=== PATIENT | male | born 1930 | race Caucasian/White ===

== ENCOUNTER 2018-02-03 13:23 | Outpatient (CLI) | payer MEDICARE ==
--- NOTE | 2018-02-03 18:49 | RAD ---
LEFT HIP TWO VIEWS: 02/03/18 No fracture, recent or remote, was appreciated. The joint space is normal in width and the articular surfaces are smooth. The adjacent pubic ring appears intact. IMPRESSION: No acute finding. POS: HOME
--- NOTE | 2018-02-03 19:25 | RAD ---
ABDOMEN 02/03/18 AP supine views of the abdomen were provided. There is gas in large and small bowel. Some of the prox imal small bowel shows some slight dilation, but it is not convincing for obstruction at this time. F ecal material is scattered throughout the colon. Pelvic calcifications are most likely phleboliths. F lank calcifications over the kidneys would be missed due to the overlying gas and fecal material. Phyllis ious clips are seen throughout the abdomen from a prior operative procedure. Lumbar scoliosis convexe d right is present with extensive degenerative changes. IMPRESSION: Nonspecific abdominal pattern. If pain should persist or worsen, then a CT might be needed to better assess the situation. POS: HOME
== END 2018-02-03 13:24 | disposition home or self-care (01) ==
LOC: BURRAD 13:23
PROVIDERS: ATTEND Nurse Practitioner Family
DX: R10.9 Unspecified abdominal pain (principal); Z85.528 Personal history of other malignant neoplasm of kidney; Z90.5 Acquired absence of kidney; Z87.442 Personal history of urinary calculi
CPT/HCPCS: 74018

== ENCOUNTER 2019-05-01 14:58 | Outpatient (CLI) | payer MEDICARE ==
--- NOTE | 2019-05-01 18:36 | RAD ---
RIGHT CLAVICLE TWO VIEWS: Date: 05-01-19 FINDINGS: No acute fracture was seen. There is narrowing of the AC joint with some bony spurring that projects inferiorly. It could potentially cause impingement on the supraspinatus tendon. The humeral head appe ars intact. IMPRESSION: No acute traumatic changes. POS: HOME
--- NOTE | 2019-05-01 18:38 | RAD ---
RIGHT SHOULDER THREE VIEWS: Date: 05-01-19 FINDINGS: No fracture or dislocation was seen. Degenerative changes in the glenohumeral joint are minimal. Some mild degenerative change is seen in the AC joint. No areas of bony destruction is seen. While the ri ght side of the mediastinum appear prominent, I do believe it is due to patient being turned to his s lonny, and having a tortuous great vessel. IMPRESSION: No acute findings. POS: HOME
--- NOTE | 2019-05-01 18:58 | RAD ---
LUMBAR SPINE THREE VIEWS: Date: 05-01-19 Comparison: None. FINDINGS: Scoliosis is present, convex right. No acute fracture was identified. There is multilevel degenerativ e disc disease, particularly at L1-2, L2-3, and L5-S1. Severe degenerative changes are present in the facet joints, particularly at L5-S1. The SI joints are symmetrical. IMPRESSION: Scoliosis and moderately severe degenerative change with multilevel degenerative disc disease. No sig n of acute traumatic change. POS: HOME
== END 2019-05-01 14:59 | disposition home or self-care (01) ==
LOC: BURRAD 14:58
PROVIDERS: ATTEND Family Medicine
DX: M25.511 Pain in right shoulder (principal); M54.5 Low back pain; M51.36 Other intervertebral disc degeneration, lumbar region; M47.816 Spondylosis without myelopathy or radiculopathy, lumbar region; M41.9 Scoliosis, unspecified; Z91.81 History of falling
CPT/HCPCS: 72100

== ENCOUNTER 2020-05-13 09:29 | Inpatient (IN) | payer MEDICARE, OTHER ==
[2020-05-13 09:54] LABS: #Basophils 0.1 thou/uL (0.0-0.2); #Eosinphils 0.3 thou/uL (0.0-0.7); #Monocytes 1.4 thou/uL (0.11-0.59); #Neutrophils 5.9 thou/uL (1.40-6.50); %Basophils 1.1 % (0.0-1.0); %Eosinophils 2.2 % (0.0-10.0); %Lymphocytes 34.4 % (21.0-51.0); %Monocytes 11.9 % (0.0-10.0); %Neutrophils 50.3 % (42.0-75.0); Hemoglobin 13.2 g/dL (14.0-18.0); Mean Corpuscular HGB CONC 30.4 g/dL (32.0-36.0); Mean Corpuscular Hemoglobin 28.9 pg (27.0-31.0); Mean Corpuscular Volume 95.3 fL (78.0-98.0); Mean Platelet Volume 8.2 fL (7.4-10.4); Platelet Count 249 thou/uL (130-400); RBC Distribution Width 13.6 % (11.5-14.5); Red Blood Cell (RBC) Count 4.55 mill/uL (4.70-6.10); White Blood Cell (WBC) Count 11.7 thou/uL (4.8-10.8)
[2020-05-13 10:00] LABS: INR-International Normal Ratio 1.1; Prothrombin Time 14.1 sec (12.0-14.7)
[2020-05-13 10:04] LABS: PTT 32.3 sec (22.9-36.1)
[2020-05-13 10:08] LABS: ALT (SGPT) 13 U/L (8-55); AST (SGOT) 19 U/L (5-34); Albumin 3.6 g/dL (3.4-4.8); Alkaline Phosphatase 63 U/L (40-110); Anion Gap 16 mmol/L (10-20); BUN (Urea Nitrogen) 17 mg/dL (8.4-25.7); Bilirubin, Total 0.7 mg/dL (0.2-1.2); Calc. Creatinine Clearance 0 mL/min (70-130); Calcium 8.7 mg/dL (7.8-10.44); Carbon Dioxide 26 mmol/L (23-31); Chloride 104 mmol/L (98-107); Estimated GFR-MDRD 61; Globulin 3.4 g/dL (2.4-3.5); Glucose 119 mg/dL (83-110); Potassium 4.3 mmol/L (3.5-5.1); Sodium 142 mmol/L (136-145)
--- NOTE | 2020-05-13 10:08 | RAD ---
Portable frontal chest radiograph: 05/13/2020 COMPARISON: 09/25/2019 HISTORY: Pain FINDINGS: Stable increased density is noted in the right paratracheal region with deviation of the tr achea to the left, likely on the basis of right thyroid enlargement and vascular prominence when compared to prior CT angiogram performed 10/07/2018. No pneumothorax, pleural fluid, focal consolidati on, or alveolar edema. IMPRESSION: No focal consolidation or alveolar edema.
[2020-05-13 10:17] LABS: Bilirubin Small (Negative); Blood, Urine Large (Negative); Clarity Cloudy (Clear); Glucose, Urine (Dipstick) Negative (Negative); Ketone, Urine Negative (Negative); Leukocyte Small (Negative); Nitrite Negative (Negative); Protein, Urine (Dipstick) > or equal to 300 mg/dL (Neg-Trace)
[2020-05-13 10:21] LABS: pH, Urine Greater/Equal 9.0 (5.0-9.0)
[2020-05-13] MEDS ORDERED: Haloperidol Lactate 5 MG/ML VIAL ONE (10:26)
[2020-05-13 10:39] LABS: Bacteria/HPF 2+ HPF (None Seen); Squamous Epithelial 0-3 HPF (0-3)
[2020-05-13 12:47] LABS: Lactic Acid 1.6 mmol/L (0.5-2.2)
[2020-05-13] MEDS ORDERED: Sodium Chloride 0.9% 1,000 ML IV SCH (15:00)
[2020-05-13] MEDS ORDERED: Haloperidol Lactate 5 MG/ML VIAL SLOW IVP PRN (15:08)
[2020-05-13 15:59] VITALS: BMI 10.9
[2020-05-13] MEDS ORDERED: CAMPHOR TOP PRN (16:24)
[2020-05-13] MEDS ORDERED: SUMATRIPTAN SUCCINATE 50 MG PO PRN (16:24)
[2020-05-13] MEDS ORDERED: Acetaminophen 325 MG TAB PO PRN (16:24)
[2020-05-13] MEDS ORDERED: WHITE PETROLATUM TOP PRN (16:24)
[2020-05-13] MEDS ORDERED: EUCALYPTUS OIL TOP PRN (16:24)
[2020-05-13] MEDS ORDERED: MENTHOL TOP PRN (16:24)
[2020-05-13] MEDS ORDERED: [UNRECOGNIZED DRUG - OTHER] TOP PRN (16:24)
[2020-05-13] MEDS ORDERED: BISMUTH SUBSALICYLATE PO PRN (16:24)
[2020-05-13] MEDS ORDERED: Polyethylene Glycol OPTH DROP 15 ML BOT EA EYE PRN (17:12)
[2020-05-13] MEDS: Sodium Chloride 0.9% 1,000 ML IV SCH (17:20)
[2020-05-13] MEDS: Haloperidol Lactate 5 MG/ML VIAL SLOW IVP PRN ×2 (18:38→22:25)
[2020-05-13] MEDS: Gabapentin 100 MG CAP PO SCH (20:53)
[2020-05-13] MEDS: traMADol HCl 50 MG TAB PO PRN (20:54)
[2020-05-13] MEDS: Atorvastatin Calcium 40 MG TAB PO SCH (20:55)
[2020-05-13] MEDS ORDERED: MELATONIN PO SCH (21:00)
[2020-05-13] MEDS ORDERED: PYRIDOXINE PO SCH (21:00)
--- NOTE | 2020-05-13 21:11 | HP ---
CHIEF COMPLAINT: Urinary retention. HISTORY OF PRESENT ILLNESS: This is an 89-year-old male, resident of [facility], who was brought to the [facility] Emergency Department earlier today via EMS secondary to noted tachycardia and hypotension per [facility] staff. Of note, the patient has been having symptoms of urinary retention, for which he has had recent placement of a Aguilera catheter. 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 In the emergency department, he was noted to have a mild leukocytosis, urinary tract infection, and elevated lactic acid, accompanied by tachycardia and borderline hypotension. He was treated with intravenous fluids with vancomycin and Rocephin due to concern for sepsis. For his agitation, he was administered haloperidol. The patient's vital signs did stabilize with intravenous fluids and he was subsequently admitted to the floor for further care. On exam, the patient is unable to provide any satisfactory history. He is only mildly agitated and is producing clear/yellow tinged fluid into his Aguilera bag. PAST MEDICAL HISTORY: Includes blindness, deafness, vascular dementia, gastroesophageal reflux disease, BPH, dyslipidemia, hypertension, chronic back pain, osteoarthritis, dysphagia, repeated falls, TIA x2, gout, and insomnia. PAST SURGICAL HISTORY: Includes cholecystectomy, splenectomy, right-sided nephrectomy, ORIF of the left ankle, and abdominal hernia repair. SOCIAL HISTORY: Noncontributory, other than he lives at the [facility]. ALLERGIES: CIMETIDINE, ERYTHROMYCIN, PENICILLIN, AND SULFA. FAMILY HISTORY: Noncontributory. CURRENT MEDICATIONS: 1. Tinactin topically b.i.d. 2. Systane eye drops one drop to each eye q.6 hours p.r.n. 3. Vicks VapoRub 24 hours p.r.n. 4. Tramadol 50 mg q.6 hours p.r.n. 5. Gabapentin 200 mg b.i.d. 6. Sumatriptan 50 mg q.24 hours p.r.n. 7. Melatonin 5 mg at bedtime. 8. Pantoprazole 40 mg at bedtime. 9. Seroquel 100 mg b.i.d. 10. Levsin one tablet b.i.d. 11. Colace one capsule daily. 12. Pepto-Bismol 30 mL p.r.n. 13. Aspirin 81 mg daily. 14. Tylenol 650 mg q.4 hours p.r.n. 15. Atorvastatin 20 mg at bedtime. 16. Donepezil 23 mg at bedtime. 17. Flomax 0.8 mg daily. 18. MiraLAX 17 g p.o. daily. REVIEW OF SYSTEMS: Unable to obtain secondary to the patient's dementia. LABORATORY DATA: White blood cell count is 11.7, hemoglobin 13.2, hematocrit 43.4, and platelets 249. Sodium 142, potassium 4.3, BUN is 17, creatinine 1.13, GFR 61, and glucose 119. Initial lactic acid 3.1, followup 3 hours later is 1.6. AST 19 and ALT 13. Troponin was less than 0.010. BNP 35.8. Urine positive for protein, blood, leukocyte esterase, and 2+ bacteria. IMAGING DATA: Chest x-ray shows no focal consolidation or alveolar edema. PHYSICAL EXAMINATION: VITAL SIGNS: Temperature is 98.1, pulse is 91, respiratory rate is 20, oxygen is 95% on room air, and blood pressure is 158/87. GENERAL: The patient is alert, hard of hearing. HEENT: Eyes; conjunctivae are clear. Extraocular muscles are intact bilaterally. Ears, nose, and throat, he is edentulous with oral fasciculations. NECK/THYROID: Trachea is midline. No lymphadenopathy. CARDIOVASCULAR: Irregular. Normal S1 and S2. 2/6 murmur. RESPIRATORY: Clear to auscultation bilaterally without wheezes, rales, or rhonchi. He does have transmitted upper airway noises. GASTROINTESTINAL: Soft and nontender to palpation. No masses. EXTREMITIES: No clubbing, cyanosis, or edema. He has elongated toenails. SKIN: No rash. NEUROLOGIC: Nonfocal. MUSCULOSKELETAL: Generalized weakness. ASSESSMENT AND PLAN: 1. Sepsis. The patient's vital signs have stabilized and lactic acid has returned from initial elevation to a normal level. We will resume the patient on Rocephin. Presume this to be secondary to urinary tract infection from underlying urinary retention. 2. Urinary tract infection. We will follow up with the patient's urine culture. We will repeat the patient's CBC in the morning as he currently has leukocytosis. 3. Dehydration. Volume status appears improved secondary to stabilized vital signs and appearance of his urine in Aguilera bag improved from initial appearance. 4. Vascular dementia with behavior disturbance. He will be resumed on Seroquel and will have p.r.n. Haldol available as well. 5. Urinary retention. He currently has a Aguilera catheter in place. We will leave this overnight and try a voiding trial tomorrow. 6. Benign prostatic hyperplasia. We will resume the patient's Flomax. 7. Dyslipidemia. We will resume the patient's statin. 8. Disposition. We will likely be able to transition the patient back to the [facility]. Upon completion of his cultures, as stated, we will try a voiding trial between now and then to see if he needs to return with a Aguilera catheter in place. If he does return to the fdc with Aguilera in place, he will need followup with Urology as an outpatient. 9. Code status is full. Job ID: [id number]
[2020-05-13] MEDS: TOLNAFTATE TOP SCH (21:17)
[2020-05-14] MEDS: Sodium Chloride 0.9% 1,000 ML IV SCH (01:23)
[2020-05-14 05:47] LABS: #Basophils 0.2 thou/uL (0.0-0.2); #Eosinphils 0.3 thou/uL (0.0-0.7); #Lymphocytes 2.8 thou/uL (1.20-3.40); #Monocytes 1.6 thou/uL (0.11-0.59); #Neutrophils 6.1 thou/uL (1.40-6.50); %Basophils 1.7 % (0.0-1.0); %Eosinophils 2.5 % (0.0-10.0); %Lymphocytes 25.5 % (21.0-51.0); %Monocytes 14.4 % (0.0-10.0); %Neutrophils 56.1 % (42.0-75.0); Hemoglobin 12.2 g/dL (14.0-18.0); Mean Corpuscular HGB CONC 29.9 g/dL (32.0-36.0); Mean Corpuscular Hemoglobin 28.6 pg (27.0-31.0); Mean Corpuscular Volume 95.6 fL (78.0-98.0); Mean Platelet Volume 8.7 fL (7.4-10.4); Platelet Count 242 thou/uL (130-400); RBC Distribution Width 13.8 % (11.5-14.5); Red Blood Cell (RBC) Count 4.28 mill/uL (4.70-6.10); White Blood Cell (WBC) Count 10.9 thou/uL (4.8-10.8)
[2020-05-14 06:02] LABS: ALT (SGPT) 13 U/L (8-55); AST (SGOT) 18 U/L (5-34); Albumin 3.3 g/dL (3.4-4.8); Alkaline Phosphatase 56 U/L (40-110); Anion Gap 12 mmol/L (10-20); BUN (Urea Nitrogen) 14 mg/dL (8.4-25.7); Bilirubin, Total 0.7 mg/dL (0.2-1.2); Calc. Creatinine Clearance 34 mL/min (70-130); Calcium 8.1 mg/dL (7.8-10.44); Carbon Dioxide 26 mmol/L (23-31); Chloride 107 mmol/L (98-107); Estimated GFR-MDRD 86; Globulin 2.8 g/dL (2.4-3.5); Glucose 90 mg/dL (83-110); Potassium 3.9 mmol/L (3.5-5.1); Protein, Total 6.1 g/dL (5.8-8.1); Sodium 141 mmol/L (136-145)
[2020-05-14] MEDS: Haloperidol Lactate 5 MG/ML VIAL SLOW IVP PRN ×3 (08:10→19:40)
[2020-05-14] MEDS: Aspirin 81 mg Enteric Coated Tablet PO SCH (08:13)
[2020-05-14] MEDS: Gabapentin 100 MG CAP PO SCH ×2 (08:13→20:39)
[2020-05-14] MEDS: Docusate 100 MG CAP PO SCH (08:14)
[2020-05-14] MEDS: Tamsulosin HCl 0.4 MG CAP PO SCH (08:14)
[2020-05-14] MEDS ORDERED: Scopolamine 1.5 mg/72 hour Patch TD SCH (09:00)
[2020-05-14] MEDS: Polyethylene Glycol 3350 17 GM Packet PO SCH (09:14)
[2020-05-14] MEDS: TOLNAFTATE TOP SCH (09:15)
[2020-05-14] MEDS: cefTRIAXone\\ROCEPHIN 1 GM in Sodium Chloride 0.9% 100 ML IVPB SCH (10:24)
[2020-05-14] MEDS: Hyoscyamine Sulfate SL 0.125 mg Tablet SL SCH (10:27)
[2020-05-14] MEDS ORDERED: Hyoscyamine Sulfate SL 0.125 mg Tablet SL SCH (10:30)
[2020-05-14] MEDS: Dextrose 5 %-0.45 % NaCl 1,000 ML IV SCH (15:10)
[2020-05-14 15:45] LABS: SARS-CoV-2 MS2 Positive; SARS-CoV-2 N Gene Negative; SARS-CoV-2 S Gene Negative; SARS-CoV-2 by NAA Not Detected (NotDetected); SARS-CoV-2 orf1ab Negative
[2020-05-14 17:04] VITALS: BP 121/89
[2020-05-14] MEDS: Atorvastatin Calcium 40 MG TAB PO SCH (20:39)
[2020-05-14] MEDS ORDERED: Donepezil HCl 10 MG TAB PO SCH (21:00)
[2020-05-14] MEDS ORDERED: Melatonin 3 MG TAB PO SCH (21:00)
[2020-05-15] MEDS: Dextrose 5 %-0.45 % NaCl 1,000 ML IV SCH (05:03)
[2020-05-15] MEDS: Haloperidol Lactate 5 MG/ML VIAL SLOW IVP PRN ×2 (05:15→09:17)
[2020-05-15 05:37] LABS: Mean Corpuscular HGB CONC 30.1 g/dL (32.0-36.0); Mean Corpuscular Hemoglobin 28.7 pg (27.0-31.0); Mean Corpuscular Volume 95.3 fL (78.0-98.0); Mean Platelet Volume 9.8 fL (7.4-10.4); Platelet Count 267 thou/uL (130-400); RBC Distribution Width 13.5 % (11.5-14.5); Red Blood Cell (RBC) Count 4.54 mill/uL (4.70-6.10); White Blood Cell (WBC) Count 11.5 thou/uL (4.8-10.8)
[2020-05-15 05:56] LABS: Burr Cells SLIGHT = 2-5 cells (100X) (0-1/hpf); MDiff Complete? YES; Platelet Morphology Comment Appears Adequate; Poikilocytosis SLIGHT = 6-15 cells (100X) (0-5/hpf); Schistocytes SLIGHT = 2-5 cells (100X) (0-1/hpf)
[2020-05-15 06:16] VITALS: TEMP 98.6
[2020-05-15] MEDS: traMADol HCl 50 MG TAB PO PRN (08:46)
[2020-05-15] MEDS: Gabapentin 100 MG CAP PO SCH (09:26)
[2020-05-15] MEDS: Polyethylene Glycol 3350 17 GM Packet PO SCH (09:26)
[2020-05-15] MEDS: Hyoscyamine Sulfate SL 0.125 mg Tablet SL SCH (09:26)
[2020-05-15] MEDS: Docusate 100 MG CAP PO SCH (09:26)
[2020-05-15] MEDS: Tamsulosin HCl 0.4 MG CAP PO SCH (09:26)
[2020-05-15] MEDS: Aspirin 81 mg Enteric Coated Tablet PO SCH (09:26)
[2020-05-15] MEDS: cefTRIAXone\\ROCEPHIN 1 GM in Sodium Chloride 0.9% 100 ML IVPB SCH (10:33)
--- NOTE | 2020-05-15 14:25 | DIS ---
DATE OF ADMISSION: 05/13/2020 DATE OF DISCHARGE: 05/15/2020 ADMISSION DIAGNOSES: Sepsis, urinary tract infection, dehydration, dysphagia, urinary retention. SECONDARY DIAGNOSES: Vascular dementia with behavioral disturbance, benign prostatic hypertrophy, and dyslipidemia. PROCEDURES: 05/13/20, chest x-ray showed no focal consolidation or alveolar edema. HOSPITAL COURSE: An 89-year-old male resident of [facility] was brought to the [facility] Emergency Department via EMS secondary to tachycardia and hypotension. The patient recently had a Aguilera catheter placed due to symptoms of urinary retention. In the emergency department, the patient was noted to have urinary tract infection with mild leukocytosis and elevated lactic acid and this accompanied by his tachycardia and hypotension met the criteria for sepsis. He was provided intravenous fluids along with vancomycin and Rocephin and subsequently admitted to the floor. The patient's labs revealed a urinary culture positive for Proteus and sensitive to cephalosporins; he has been treated with daily IV Rocephin while here. His blood cultures have shown no growth to date. He has remained afebrile throughout his stay. His hemodynamic state improved back to his baseline with resolution of his prior hypotension and tachycardia. During his stay, the patient showed further signs of his underlying dysphagia for which he is typically on a pureed diet with nectar thick liquids. Speech evaluation was pursued. However, this was unable to provide any further significant information as he is largely uncooperative and will hold the contents in his oropharyngeal cavity and not follow commands; this is exacerbated by his underlying vascular dementia. Discussion was had with the patient's medical power of insurance attorney, his daughter, Kirsty Suresh in regard to this and his current code status being full code. She did decline pursuance of PEG tube placement and does feel appropriate to transition the patient to a DNR status after she has had further discussion with her brothers as well. Thus, the DNR status has been applied to the patient's chart and I have notified the intermediate of these wishes as well. A voiding trial was done during the patient's stay and he was able to void appropriately without the need for a Aguilera catheter. Thus, he will be sent back to the intermediate without a Aguilera in place, and we will send him to complete a 7 day course of p.o. cephalexin to complete treatment for his urinary tract infection. He is appropriate for discharge back to the intermediate at this time. COVID testing was negative. DISPOSITION: The patient will discharge back to [facility]. His code status has been changed to DNAR. DISCHARGE MEDICATIONS: One new medicine is cephalexin 500 mg p.o. b.i.d. x7 days, and he will resume all other usual medications on his file. Job ID: [id number] [id number]
== END 2020-05-15 14:07 | DRG 872 ==
LOC: BURERS 09:29 → BURMED 11:40
PROVIDERS: ADMIT Family Medicine; ATTEND Family Medicine
DX: A41.9 Sepsis, unspecified organism (principal); N39.0 Urinary tract infection, site not specified; F01.51 Vascular dementia, unspecified severity, with behavioral disturbance; E86.0 Dehydration; R13.10 Dysphagia, unspecified; R33.9 Retention of urine, unspecified; N40.0 Benign prostatic hyperplasia without lower urinary tract symptoms; Z66 Do not resuscitate; Z20.828 Contact with and (suspected) exposure to other viral communicable diseases; E78.5 Hyperlipidemia, unspecified; I95.9 Hypotension, unspecified; R29.6 Repeated falls; G89.29 Other chronic pain; M19.90 Unspecified osteoarthritis, unspecified site; E78.00 Pure hypercholesterolemia, unspecified; F41.9 Anxiety disorder, unspecified; F32.9 Major depressive disorder, single episode, unspecified; K21.9 Gastro-esophageal reflux disease without esophagitis; H54.7 Unspecified visual loss; G47.00 Insomnia, unspecified; M10.9 Gout, unspecified; Z86.73 Personal history of transient ischemic attack (TIA), and cerebral infarction without residual deficits; Z90.49 Acquired absence of other specified parts of digestive tract; Z88.0 Allergy status to penicillin; Z88.2 Allergy status to sulfonamides; Z88.1 Allergy status to other antibiotic agents
CPT/HCPCS: 36415; 71045; 80053; 81003; 81015; 83605; 83880; 84484; 85025; 85610; 85730; 87040; 87077; 87086; 87186; 87635; 93005; 96361; 96365; 96366; 96368; 96375; J0696; J1630; J3370; J3490; U0003